=== PATIENT | female | born 1950 | race Caucasian/White ===

== ENCOUNTER 2017-08-30 10:45 | Emergency (ER) | payer MEDICARE, MEDICAID ==
--- NOTE | 2017-08-30 11:12 | ED.PDOC ---
History of Present Illness - General Chief Complaint: Respiratory Problem Stated Complaint: Cough, congestion, weakness Time Seen by Provider: 08/30/17 11:05 Source: patient, RN notes reviewed, Vital Signs reviewed Exam Limitations: no limitations - History of Present Illness Timing/Duration: other - one month Cough Quality/Degree: severe, dry cough Possible Cause: unknown cause Improving Factors: nothing Worsening Factors: nothing Associated Symptoms: cough, nasal congestion, nasal drainage, sinus infection, sore throat Respiratory Risk Factors: no cause identified Allergies/Adverse Reactions: Allergies NO KNOWN ALLERGY Allergy (Verified 08/30/17 11:03) Home Medications: Ambulatory Orders Albuterol Inhaler [Ventolin Hfa Inhaler] 2 puff INH Q4HR PRN #1 inh 08/30/17 Azithromycin Tab [Zithromax Tab] 250 mg PO QDAC 5 Days #6 tab MDD 500 mg day 1 08/30/17 Cyclobenzaprine HCl [Flexeril] 10 mg PO TID PRN 08/30/17 HYDROcodone 10MG/APAP 325MG [[place] 10/325] 1 tab PO Q6H PRN 08/30/17 Prednisone [Deltasone] 20 mg PO BID 5 Days #10 tab 08/30/17 diazePAM [Valium] 5 mg PO BID PRN 08/30/17 Review of Systems - Review of Systems Constitutional: States: malaise, weakness. Denies: chills, fever EENTM: States: nose congestion, throat pain Respiratory: States: cough. Denies: short of breath, wheezing Cardiology: Denies: chest pain, syncope Gastrointestinal/Abdominal: States: nausea. Denies: abdominal pain, vomiting Genitourinary: States: no symptoms reported Musculoskeletal: States: back pain, joint pain Skin: States: no symptoms reported Neurological: States: weakness. Denies: headache Endocrine: Denies: flushing, increased thirst, increased urine Hematologic/Lymphatic: Denies: swollen glands Past Medical History (General) - Patient Medical History Hx Stroke: No Hx Congestive Heart Failure: No Hx Diabetes: No Surgical History: other - Vaccination History Hx Influenza Vaccination: No Hx Pneumococcal Vaccination: No - Social History Hx Tobacco Use: Yes Cigarettes Packs Per Day: 1 Hx Alcohol Use: Yes - social Hx Substance Use: No Family Medical History - Family History Mother Living Status: Hx Family Diabetes: Yes Hx Family;Other: Sister has diabetes Physical Exam - Physical Exam General Appearance: Alert, Lethargic Eye Exam: bilateral normal ENT Exam: pharynx normal, muffled/hoarse voice Neck: non-tender, full range of motion, supple Respiratory: chest non-tender, no respiratory distress, rhonchi Cardiovascular/Chest: normal peripheral pulses, regular rate, rhythm, no edema Gastrointestinal/Abdominal: normal bowel sounds, non tender, soft Extremity: normal range of motion, non-tender, no pedal edema 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 Copy, Patient Portal Self Enrollment Prescriptions: Albuterol Inhaler [Ventolin Hfa Inhaler] 2 puff INH Q4HR PRN #1 inh PRN Reason: Cough Azithromycin Tab [Zithromax Tab] 250 mg PO QDAC 5 Days #6 tab MDD 500 mg day 1 Prednisone [Deltasone] 20 mg PO BID 5 Days #10 tab Home Medications: Ambulatory Orders Albuterol Inhaler [Ventolin Hfa Inhaler] 2 puff INH Q4HR PRN #1 inh 08/30/17 Azithromycin Tab [Zithromax Tab] 250 mg PO QDAC 5 Days #6 tab MDD 500 mg day 1 08/30/17 Cyclobenzaprine HCl [Flexeril] 10 mg PO TID PRN 08/30/17 HYDROcodone 10MG/APAP 325MG [[place] 10/325] 1 tab PO Q6H PRN 08/30/17 Prednisone [Deltasone] 20 mg PO BID 5 Days #10 tab 08/30/17 diazePAM [Valium] 5 mg PO BID PRN 08/30/17
[2017-08-30] MEDS ORDERED: IPRATROPIUM/ALBUTEROL 3 ML VIAL NEB ONE (11:18)
--- NOTE | 2017-08-30 11:45 | RAD ---
EXAM DESCRIPTION: Chest,1 View CLINICAL HISTORY: cough COMPARISON: None Available. FINDINGS: Cardiomediastinal silhouette and pulmonary vascularity are within normal limits. Scattered sub-5 mm calcified granulomas are present. Otherwise, lungs are clear without focal consolidative infiltrates. Bilateral costophrenic angles are sharp. No pneumothorax. Visualized osseous structures show no destructive lesions. IMPRESSION: 1. No radiographic evidence for acute cardiopulmonary process. 2. Other findings as above. Electronically signed by: Ashwin Saeed MD 08/30/2017 11:44 AM [facility]
[2017-08-30 12:59] VITALS: BP 122/54; TEMP 97; O2SAT 97
== END 2017-08-30 13:00 | disposition home or self-care (01) ==
LOC: ER 10:45
DX: J40 Bronchitis, not specified as acute or chronic (principal); F17.210 Nicotine dependence, cigarettes, uncomplicated
CPT/HCPCS: 36415; 71045; 80053; 85025; 94640; J7620